=== PATIENT | male | born 1965 | race Caucasian/White ===

== ENCOUNTER 2024-02-09 09:54 | Emergency (ER) | payer OTHER, SELFPAY ==
[2024-02-09 09:57] VITALS: BP 154/97
--- NOTE | 2024-02-09 10:27 | ED.GENMED ---
History of Present Illness
General
Chief Complaint: Musculo-Skeletal Complaint
Time Seen by Provider: 02/09/24 10:18
History of Present Illness
History of Present Illness:
58-year-old male presents the emergency department for evaluation of left wrist pain has been ongoing for the past 3 weeks. 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 Pain is
to the lateral and dorsal wrist, worse with wrist rotation. Has been wearing a thumb spica splint without relief. Has not taken any medications for pain
Past History
Past History
ED Past Medical History: None; Negative HTN or NIDDM
Social History
Living: with family
Review of Systems
Review of Systems
Allergies reviewed?: Yes
All Other Systems: ROS reviewed and negative except as documented in HPI and ROS
Phy Exam
Physical Exam
Physical Exam:
GEN: Well appearing, NAD, WDWN
HEENT: Oral mucosa moist, no scleral icterus
Cardiac: Regular rate
Lung: No respiratory distress, no tachypnea
MSK: No gross deformity or injuries. Pain to the left wrist elicited primarily with terminal supination, there is no focal tenderness, no pain with passive range of motion, no joint effusion
Skin: Good color, no pallor or jaundice, no rashes
Neuro: AO x3, moves all extremities freely
Psych: Calm, cooperative
Course
Orders/Labs/Results
Orders:
Orders
02/09/24 09:59
Wrist, Left 3 Views CR [CR Wrist - Left Min 3 Views] Urgent
Comment:
Reason For Exam: pain
Vital Signs
Initial and Last Documented VS:
Initial Vital Signs
Temp Pulse Resp BP Pulse Ox
97.4 F 70 18 154/97 98
02/09/24 09:57 02/09/24 09:57 02/09/24 09:57 02/09/24 09:57 02/09/24 09:57
Last Documented Vital Signs
Temp Pulse Resp BP Pulse Ox
97.4 F 70 18 154/97 98
02/09/24 09:57 02/09/24 09:57 02/09/24 09:57 02/09/24 09:57 02/09/24 09:57
MDM/Problems Addressed
MDM/Problems Addressed:
X-rays independently interpreted by me are negative for acute abnormality. In all likelihood this represents a tendinitis related to his occupation. Will recommend prescription strength NSAIDs and outpatient hand surgery follow-up if not
improving. Discussed further supportive care
*Critical Care Note
Total Time (30-74mins, 75-104mins- exclusive of procedures): Not Applicable
ED Attending Note
-
Portions of this chart may have been created with voice recognition software.� Occasional wrong word or��sound alike� substitutions may have occurred due to the inherent limitations of voice recognition software.
Discharge Plan
Departure
Patient Disposition: Home (Routine Discharge)
Date of Disposition: 02/09/24
Time of Disposition: 10:27
Patient with high blood pressure during this ER visit?: Yes
Discharge Problem:
Left wrist tendinitis
Instructions: Tendinopathy (DC)
Prescriptions:
New
meloxicam 15 mg tablet
15 mg PO DAILY Qty: 14 0RF
Referrals:
Maurice Weaver MD [Active] -
Activity Restrictions/Additional Instructions:
Do not take ibuprofen or aspirin while using the prescribed anti inflammatory medication
Ice the wrist for at least 20 minutes after working
If your symptoms do not improve with the medication, follow up with the hand surgery office listed on your discharge summary
Interventions
Interventions:
*Risk Screen - Suicide Last Done: 02/09/24 09:57
*General Assessment Last Done: 02/09/24 09:57
*Neglect/Abuse Screening Last Done: 02/09/24 09:57
ED-Musculoskeletal Assessment Last Done: 02/09/24 10:36
Discharge Date and Time
Print Language: YI
== END 2024-02-09 10:44 | disposition home or self-care (01) ==
LOC: EMR 09:54
PROVIDERS: EMERGENCY PHYSICIAN Emergency Medicine; FAMILY PHYSICIAN Family Medicine
DX: M25.532 Pain in left wrist (principal); M77.9 Enthesopathy, unspecified; R03.0 Elevated blood-pressure reading, without diagnosis of hypertension
CPT/HCPCS: 99283; 73110

== ENCOUNTER 2025-02-07 13:19 | Emergency (ER) | payer BC, SELFPAY ==
[2025-02-07 13:28] VITALS: BP 166/68
--- NOTE | 2025-02-07 14:39 | ED.GENMED ---
History of Present Illness
General
Chief Complaint: Back Pain
Source: patient and spouse
Exam Limitations: none
Time Seen by Provider: 02/07/25 14:21
Nursing documentation reviewed up to this point in time: agreed with
History of Present Illness
History of Present Illness:
59-year-old male presents to the emergency department due to left sided low back pain radiating down his left leg. This is similar to when he had sciatica in the past. He has an appointment with [facility] spine tomorrow.
Past History
Past History
ED Past Medical History: HTN; Negative NIDDM
ED Past Surgical History: None
Social History
Tobacco: Non-smoker
Alcohol: None
Drug: None
Personal:
Living: with family
Employment: Employed
Review of Systems
Review of Systems
Allergies reviewed?: Yes
All Other Systems: Not applicable
Constitutional: Reports no symptoms
EENT: Reports no symptoms
Respiratory: Reports no symptoms
Cardiac: Reports no symptoms
ABD/GI: Reports no symptoms
: Reports no symptoms
Musculoskeletal: Reports back pain
Skin: Reports no symptoms
Neurological: Reports no symptoms
Endocrine: Reports no symptoms
Hematologic/Lymphatic: Reports no symptoms
Psychiatric: Reports no symptoms
Phy Exam
Physical Exam
Physical Exam:
Physical Exam
General: no apparent distress, not acutely ill
Neck: supple. no meningeal signs. normal posterior pharynx
HEENT: Pupils equal round reactive to light, EOMI
Lungs: no acute respiratory distress
Abdomen: normal bowel sounds. not tender. no CVAT
Neuro: alert and oriented. no focal neurological deficits cranial nerves II through XII intact
Skin: no rash
Psychiatric: well kept. interactive and cooperative
Extremities: no edema. no calf tenderness. negative homans. good distal pulses
Course
Vital Signs
Initial and Last Documented VS:
Initial Vital Signs
Temp Pulse Resp BP Pulse Ox
98.3 F 86 18 166/68 98
02/07/25 13:28 02/07/25 13:28 02/07/25 13:28 02/07/25 13:28 02/07/25 13:28
Last Documented Vital Signs
Temp Pulse Resp BP Pulse Ox
98.3 F 86 18 166/68 98
02/07/25 13:28 02/07/25 13:28 02/07/25 13:28 02/07/25 13:28 02/07/25 13:28
MDM/Problems Addressed
Differential Diagnosis Includes:
Cauda equina, sciatica
MDM/Problems Addressed:
59-year-old male with sciatica on the left. Follow-up with spine tomorrow. Treat with Neurontin and NSAIDs. Return precautions given.
*Pulse Oximetry
SaO2: 98
Oxygen Mode of Delivery: Room air
Patient hypoxic: no
*Critical Care Note
Total Time (30-74mins, 75-104mins- exclusive of procedures): Not Applicable
Patient Management
Social determinants of health affecting care: Living situation and Strong social support
Escalation/DeEscalation of care consider admission/obs:
admit not indicated
ED Attending Note
-
Portions of this chart may have been created with voice recognition software.� Occasional wrong word or��sound alike� substitutions may have occurred due to the inherent limitations of voice recognition software.
Discharge Plan
Departure
Patient Disposition: Home (Routine Discharge)
Date of Disposition: 02/07/25
Time of Disposition: 14:49
Patient with high blood pressure during this ER visit?: Yes
Condition: Good
Discharge Problem:
Sciatica of left side
Instructions: Sciatica (DC), BLOOD PRESSURE
Prescriptions:
New
gabapentin 300 mg capsule
300 mg PO TID PRN (Reason: pain) Qty: 30 0RF
No Action
meloxicam 15 mg tablet
15 mg PO DAILY Qty: 14 0RF
Referrals:
Hannah Sr DO [Family Provider, Family Practice]
Interventions
Interventions:
*Risk Screen - Suicide Last Done: 02/07/25 13:28
*General Assessment Last Done: 02/07/25 13:28
*ED- Fall Risk Assessment Last Done: 02/07/25 13:28
*ED COVID-19 Vaccine History Last Done: 02/07/25 13:28
Discharge Date and Time
Print Language: MALAYSIAN
[2025-02-07] MEDS: TORADOL 15 MG IM (14:59)
[2025-02-07] MEDS: NEURONTIN 300 MG PO (15:00)
== END 2025-02-07 15:16 | disposition home or self-care (01) ==
LOC: EMR 13:19
PROVIDERS: EMERGENCY PHYSICIAN Emergency Medicine; FAMILY PHYSICIAN Family Medicine; OTHER PHYSICIAN Internal Medicine Interventional Cardiology
DX: M54.42 Lumbago with sciatica, left side (principal); I10 Essential (primary) hypertension
CPT/HCPCS: 99282; 96372